=== PATIENT | male | born 1955 | race Asian ===

== ENCOUNTER 2020-12-19 09:12 | Emergency (ER) | payer OTHER, SELFPAY ==
[2020-12-19 09:25] VITALS: BP 151/88; PULSE 86; RESP 20; TEMP 36.7; O2SAT 100
--- NOTE | 2020-12-19 12:26 | ED.GENADULT ---
HPI - General Adult General Chief complaint: Skin/Abscess/Foreign Body Stated complaint: rash Time Seen by Provider: 12/19/20 11:26 Source: patient and family (son) Mode of arrival: ambulatory Limitations: no limitations History of Present Illness HPI narrative: Patient presents with chief complaint of burning painful rash to the left side of his chest that wraps around to his back. Patient states that he believes he had shingles. Patient reports that rash is very painful and burning. He reports that the burning started the he noticed the rash. He denies any fevers, chills, nausea, vomiting, diarrhea. Patient's only chronic medical condition is diabetes. Related Data Allergies Allergy/AdvReac Type Severity Reaction Status Date / Time No Known Allergies Allergy Verified 12/19/20 11:13 Review of Systems Review of Systems: Narrative: CONSTITUTIONAL: Denies fever, chills, or sweats. EYES: Denies visual changes, redness, or discharge. ENT: Denies rhinorrhea, congestion, sore throat, or otalgia. CARDIOVASCULAR: Denies chest pain, palpitations, or edema. RESPIRATORY: Denies cough or dyspnea. GASTROINTESTINAL: Denies abdominal pain, nausea, vomiting, or diarrhea. GENITOURINARY: Denies dysuria or hematuria. SKIN: Reports rash, burning, pain, itching. MUSCULOSKELETAL: Denies back pain, joint pain, or myalgia. NEUROLOGIC: Denies headache, numbness, dizziness, or weakness. PSYCHIATRIC: Denies anxiety or depression. Exam Narrative: Exam Narrative: GENERAL: Well-appearing, well-nourished, and in no acute distress. HEAD: Normocephalic, atraumatic. EYES: PERRLA and EOMI. NECK: Supple. No adenopathy or masses. CHEST: Clear to auscultation. No respiratory distress. No wheezes rales or rhonchi HEART: Regular rate and rhythm. EXTREMITIES: Normal range of motion. No edema. SKIN: Vesicles to the left chest wall that wraps around to the posterior thorax consistent with shingles. warm, dry. NEURO: No focal deficits. Alert and oriented x3. PSYCH: Normal mood and affect. Course Vital Signs Vital signs: Vital Signs Temperature 98.1 F 12/19/20 09:25 Pulse Rate 86 12/19/20 09:25 Respiratory Rate 20 12/19/20 09:25 Blood Pressure 151/88 H 12/19/20 09:25 Pulse Oximetry 100 12/19/20 09:25 Temperature 98.1 F 12/19/20 09:25 Pulse Rate 86 12/19/20 09:25 Respiratory Rate 20 12/19/20 09:25 Blood Pressure 151/88 H 12/19/20 09:25 Pulse Oximetry 100 12/19/20 09:25 Medical Decision Making MDM Narrative Medical decision making narrative: Discussed with patient the need to follow-up with his primary care for further evaluation and management. Especially if any signs of infection present and his diabetes increases risk of infection and complications. Vital Signs Vital Signs: Vital Signs Temperature 98.1 F 12/19/20 09:25 Pulse Rate 86 12/19/20 09:25 Respiratory Rate 20 12/19/20 09:25 Blood Pressure 151/88 H 12/19/20 09:25 Pulse Oximetry 100 12/19/20 09:25 Temperature 98.1 F 12/19/20 09:25 Pulse Rate 86 12/19/20 09:25 Respiratory Rate 20 12/19/20 09:25 Blood Pressure 151/88 H 12/19/20 09:25 Pulse Oximetry 100 12/19/20 09:25 Discharge Plan Discharge Clinical Impression: Herpes zoster Patient Disposition: Home, Self-Care Condition: Stable Instructions: Antibiotic Form, Shingles (ED) Additional Instructions: Take Valtrex as instructed. Take [place] as directed. Do not take if you will be driving or operating heavy machinery as it can cause drowsiness. [place] can possibly cause constipation so pay attention as she may need stool softener. Follow-up with your primary care within 1 week for reevaluation. Follow-up sooner if any signs of infection or complications present. Return to emergency department if you have any emergent symptoms. Prescriptions: New valacyclovir [Valtrex] 1 gram tablet 1,000 mg PO Q8H 7 Days Qty: 21 RF: 0 hydrocodone-acetamino
[2020-12-19] MEDS: HYDROcodone/acetaminophen (*CRX) 5-325 MG TABLET 1 TAB PO (12:41)
[2020-12-19 12:44] VITALS: BP 145/67; PULSE 71; RESP 16; O2SAT 100
== END 2020-12-19 13:17 | disposition home or self-care (01) ==
PROVIDERS: Emergency Provider Emergency Medicine
DX: B02.9 Zoster without complications (principal)
CPT/HCPCS: 99283; A9270